=== PATIENT | female | born 1950 | race Caucasian/White ===

== ENCOUNTER 2018-09-17 09:24 | Day surgery (SDC) | payer MEDICARE ==
[~2018-09-17 09:24] MED LIST: Buffered Lidocaine 1% SYRIN* 1 ML/SYRINGE INTRADERM ONE
[2018-09-17] MEDS ORDERED: Ondansetron ODT TAB* 4 MG ONE (10:54)
[2018-09-17] MEDS ORDERED: fentaNYL* 50 MCG/ML 2 ML VIAL (100 MCG VIAL) ONE (11:51)
[2018-09-17] MEDS ORDERED: Midazolam* 1 MG/ML 2 ML VIAL (2 MG) ONE ×2 (11:51→11:55)
[2018-09-17] MEDS ORDERED: Phenylephrine OPHTH SOL 2.5%* 2 ML ONE (13:56)
[2018-09-17] MEDS ORDERED: Ketorolac 0.5% OPHTH (NF) 0.5 % 5 ML BTL ONE (13:56)
[2018-09-17] MEDS ORDERED: Lidocaine 1%* 5 ML VIAL ONE (13:56)
[2018-09-17] MEDS ORDERED: Proparacaine 0.5% OPHTH.SOL* 15 ML BTL ONE (13:56)
[2018-09-17] MEDS ORDERED: Neomycin/Polymy/Dex OPTH.SUSP* MAXITROL 0.1% 5 ML ONE (13:56)
[2018-09-17] MEDS ORDERED: Cyclopentolate 1% OPTH.SOL* 2 ML BTL ONE (13:56)
[2018-09-17] MEDS ORDERED: Lidocaine 2% EPI 1:200000 MPF*10-20 ML VIAL ONE (13:56)
[2018-09-17] MEDS ORDERED: Povidone Iodine 5% OPTH* 30 ML BTL ONE (13:56)
[2018-09-17 15:16] VITALS: BP 115/67
--- NOTE | 2018-09-17 15:38 | OP ---
OPERATIVE NOTE: DATE OF OPERATION: 09/17/18 - [facility] DATE OF : 54 SURGEON: Isaiah Rowe M.D. PREOPERATIVE DIAGNOSIS: Cataract, left eye. POSTOPERATIVE DIAGNOSIS: Cataract, left eye. OPERATIVE PROCEDURE: Extracapsular cataract extraction with intraocular lens implant left eye. PROCEDURE: The patient was brought to the operating room after being given 1/2 % Alcaine with epinephrine drops in the preoperative area. The eye was prepped and draped in the usual sterile fashion. Sterile drape and eyelid speculum were placed. Again, topical 1/2% Alcaine with epinephrine was given. A paracentesis incision was made at the 3 o'clock position with the No.75 blade. Clear cornea incision 2.2 x 2.2-mm was created at the 6 o'clock position starting at the anterior limbus using the 2.2-mm keratome. The anterior chamber was irrigated with 0.4 mL of 1% non-preservative intracameral lidocaine and filled with DisCoVisc. A capsulorrhexis was completed using the cystotome and the Utrata forceps. Hydrodissection was performed with balanced salt solution. The lens nucleus was removed with the Phacoemulsification handpiece without incident. Cortex was removed with the irrigation-aspiration handpiece. The capsular bag was re-inflated using DisCoVisc and an SN60WF 11.5 implant was inserted with the shooter. All measurements were confirmed with ORA. The irrigation-aspiration handpiece was used to remove all residual DisCoVisc. The eye was refilled with balanced salt solution and the wound checked and found to be watertight. Topical Maxitrol drops were given. [id number]/[facility] #: [id number] [facility] HOSPITALFredy
== END 2018-09-17 14:15 | disposition home or self-care (01) ==
LOC: OREAST 09:24
PROVIDERS: ATTEND Specialist
DX: H25.812 Combined forms of age-related cataract, left eye (principal); H35.372 Puckering of macula, left eye; K90.0 Celiac disease; K58.9 Irritable bowel syndrome, unspecified; K86.81 Exocrine pancreatic insufficiency
CPT/HCPCS: A9270-GY; J2250; J3010; V2632

== ENCOUNTER 2018-09-24 07:06 | Day surgery (SDC) | payer MEDICARE ==
[~2018-09-24 07:06] MED LIST changes: +Acetaminophen TAB* 325 MG PO PRN
[2018-09-24] MEDS ORDERED: Midazolam* 1 MG/ML 2 ML VIAL (2 MG) ONE ×2 (09:06→10:07)
[2018-09-24 11:29] VITALS: BP 114/75
--- NOTE | 2018-09-24 12:32 | OP ---
OPERATIVE NOTE: DATE OF OPERATION: 09/24/18 DATE OF : 54 SURGEON: Isaiah Rowe MD PREOPERATIVE DIAGNOSIS: Cataract right eye. POSTOPERATIVE DIAGNOSIS: Cataract right eye. OPERATIVE PROCEDURE: Extracapsular cataract extraction with intraocular lens implant right eye. PROCEDURE: The patient was brought to the operating room after being given 1/2% Alcaine with epineph rine drops in the preoperative area. The eye was prepped and draped in the usual sterile fashion. S terile drape and eyelid speculum were placed. Again, topical 1/2% Alcaine with epinephrine was given . A paracentesis incision was made at the 9 o'clock position with the No.75 blade. Clear cornea inc ision 2.2 x 2.2-mm was created at the 12 o'clock position starting at the anterior limbus using the 2 .2-mm keratome. The anterior chamber was irrigated with 0.4 mL of 1% non-preservative intracameral l idocaine and filled with DisCoVisc. A capsulorrhexis was completed using the cystotome and the Utrat a forceps. Hydrodissection was performed with balanced salt solution. The lens nucleus was removed w ith the Phacoemulsification handpiece without incident. Cortex was removed with the irrigation-aspir ation handpiece. The capsular bag was re-inflated using DisCoVisc and an [id number] implant was inser christina with the shooter and oriented to the 111 degree meridian. All measurements were confirmed with O RA, horizontal reference morton were made with the patient seated in the preoperative area. In additi on, the pupil was very small prior to capsulorrhexis where a Malyugin ring was inserted and removed a fter insertion of the lens. The irrigation-aspiration handpiece was used to remove all residual DisC oVisc. The eye was refilled with balanced salt solution and the wound checked and found to be watert ight. Topical Maxitrol drops were given. Indication for complex cataract surgery: Pupil abnormalities requiring pupil dilation device. [id number]/[facility] #: [id number]
[2018-09-24] MEDS ORDERED: Ketorolac 0.5% OPHTH (NF) 0.5 % 5 ML BTL ONE (13:42)
[2018-09-24] MEDS ORDERED: Cyclopentolate 1% OPTH.SOL* 2 ML BTL ONE (13:42)
[2018-09-24] MEDS ORDERED: acetaZOLAMIDE TAB* 250 MG ONE (13:42)
[2018-09-24] MEDS ORDERED: Proparacaine 0.5% OPHTH.SOL* 15 ML BTL ONE (13:42)
[2018-09-24] MEDS ORDERED: Phenylephrine OPHTH SOL 2.5%* 2 ML ONE (13:42)
[2018-09-24] MEDS ORDERED: Neomycin/Polymy/Dex OPTH.SUSP* MAXITROL 0.1% 5 ML ONE (13:42)
[2018-09-24] MEDS ORDERED: Lidocaine 2% EPI 1:200000 MPF*10-20 ML VIAL ONE (13:42)
[2018-09-24] MEDS ORDERED: Lidocaine 1%* 5 ML VIAL ONE (13:42)
[2018-09-24] MEDS ORDERED: Povidone Iodine 5% OPTH* 30 ML BTL ONE (13:42)
== END 2018-09-24 11:05 | disposition home or self-care (01) ==
LOC: OREAST 07:06
PROVIDERS: ATTEND Specialist
DX: H25.811 Combined forms of age-related cataract, right eye (principal); H21.562 Pupillary abnormality, left eye; H35.372 Puckering of macula, left eye; K58.9 Irritable bowel syndrome, unspecified
CPT/HCPCS: A9270-GY; J2250; V2787